=== PATIENT | female | born 1950 | race Caucasian/White ===

== ENCOUNTER → 2016-05-15 | Outpatient (CLI) | payer BC ==
--- NOTE | 2016-05-15 14:27 | DI ---
COMPLETE MYELOGRAM, 05/15/2016 9:08 AM: Clinical History: Left cervical radiculopathy. Thoracic back pain. Lumbar pain. Previous Exam: None at this facility. A "time out" session verified the patient's name and date of . Informed signed consent was then obtained for this procedure. The patient was informed of benefits and risks, to include but not be li mited to: allergies to medications (skin preparation agents, local anesthetic, and contrast agent), i nfection, and "spinal" headaches. The lower back was prepped with ChloraPrep with Tint. 1% lidocaine without epinephrine was used for intradermal and subcutaneous local anesthesia. With fluoroscopy, a 2 2 gauge spinal needle introduced into the spinal canal from the left L5 paraspinal approach. with a s leonora pass that revealed droplets of clear colorless CSF. 10 ml of Omipaque 300 was injected into the spinal canal with fluoroscopic monitoring. Spot films of the spine were obtained and the patient was transferred to the CT scan suite for the CT myelogram. Following the CT scan, the patient was observed in the department for approximately 1 hour. The nessa nt was then discharged home with a tank driver and was instructed to minimize activity for the rest of the day. The patient was also instructed to push fluids for the remainder of the day and to sleep on an extra pillow with the head up if possible. The patient was advised to watch for signs of an infection (including but not limited to: redness, swelling, fever) or an unusually severe headache. The fiorella t was instructed to either contact the x-ray department directly or to report to the Emergency Room i mmediately if problems arose. CERVICAL MYELOGRAM: The cervical cord is normal. No nerve root sleeve amputation is are present. Because of the patient's body habitus, only the C2-3 through C4-5 levels could be visualized on the crosstable lateral projec tion. Further evaluation will be performed with CT scanning. THORACIC MYELOGRAM: The thoracic cord is normal. No nerve root sleeve amputations are present. No extradural lesions are noted. LUMBAR MYELOGRAM: The lumbar canal has a normal appearance. No anterior extradural lesions are identified and there are no nerve root sleeve amputations. The conus medullaris is normal. Readin. Normal thoracic myelogram. The lumbar myelogram is also normal. 2. The AP and oblique projections of the cervical spine are normal. The crosstable lateral film show s normal disc spaces at C2-3 through C4-5 and the lower levels are obscured by the shoulders. This ar ea will be evaluated with a postcontrast CT scan.
--- NOTE | 2016-05-15 22:20 | DI ---
CT CERVICAL SPINE SCAN WITH INTRATHECAL CONTRAST, 05/15/2016 9:08 AM : Clinical History: Left cervical radiculopathy. Previous Exam: None at this facility. Scans are performed from the mid body of T3 to the base of the skull without IV contrast. Sagittal an d coronal reformatted images are generated. Curved coronal reformatted images and axial reformatted i mages angled through the disc spaces are also performed. The vertebral bodies are of normal height and size. The disc spaces are normal in height. No fracture s are identified. Posterior alignment and lateral masses are normal. C1 articulates normally with C2 and the occiput. Prevertebral soft tissue planes are normal. The cervical cord and cerebellar tonsils are normal. The C2-3 disc space is normal. C3-4 and C4-5 dis c spaces have central focal bulging but not herniated discs without canal or neural foraminal stenosi s. The disc spaces from C5-6 through T3-4 are normal. There is no intradural extramedullary lesion no jesus. READIN. There are midline small focal bulging discs at C3-4 and C4-5. There is no canal or neural foramin al stenosis at either level. 2. The C2-3 and the C5-6 through T3-4 disc spaces are normal. 3. The cervical cord is normal.
--- NOTE | 2016-05-15 22:39 | DI ---
CT THORACIC SPINE SCAN WITH INTRATHECAL CONTRAST, 05/15/2016 9:08 AM : Clinical History: Thoracic back pain. Previous Exam: None at this facility. Scans are obtained from the mid body of C6 to to the mid body of L1 without IV contrast. Sagittal and coronal reformatted images are generated. Curved coronal reformatted images and axial reformatted im ages angled through the disc spaces are also performed. There is osteoporosis and there are is wedging anteriorly of the bodies of T7 through T9 consistent w ith chronic osteoporotic mild compression fractures. The remaining vertebral bodies are of normal hei ght. Mild disc space narrowing is present at T8-9 in the remaining thoracic disc spaces are of normal height. Posterior alignment and posterior elements are normal. Pedicles are normal. Paravertebral so ft tissue planes are normal. Osteophytic spurring is present laterally on the left side between T5-6 and T6-7, and bilaterally from T7-8 through T10-11. Calcified granulomata are present in the right up per lobe and in the superior segment of the right lower lobe. The lesion in the right lower lobe concepción ures 18 mm in diameter and has a central calcification that measures 6 mm in diameter. Punctate calci fications are present in the spleen and together with the calcified granulomata in the lungs, this pa tient most likely has had prior exposure to TB or histoplasmosis. There is a bulging but not herniated disc without canal or neural foraminal stenosis at T8-9. The dis c spaces from C6-7 through T7-8, and from T9-10 through T12-L1 are normal. There is no intradural ext ramedullary lesion or intramedullary lesion present. Readin. Mild osteoporotic compression fractures between T7 and T9 with mild disc space narrowing and a bu lging but not herniated disc at T8-9. There is no canal or neural foraminal stenosis at this level. 2. The disc spaces from C6-7 through T7-8 and from T9-10 through T12-L1 are normal. The thoracic cor d is also normal. 3. 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
--- NOTE | 2016-05-15 22:48 | DI ---
CT LUMBAR SPINE SCAN WITH INTRATHECAL CONTRAST, 05/15/2016 9:08 AM : Clinical History: Lumbar pain. Previous Exam: None at this facility. Scans are obtained from T12 to S4 with intrathecal contrast. Sagittal and coronal reformatted images are generated. Curved coronal reformatted images and axial reformatted images angled through the dis c spaces are also performed. Coronal The vertebral bodies are of normal height and size. There is moderate L1-2 and L2-3 and L5-S1 disc sp tiffany narrowing. The remaining disc spaces are of normal height. The pedicles and posterior alignment a re normal. Severe degenerative arthritic change is present in the apophyseal joints bilaterally at L4 -5 and L5-S1. The sacrum and SI joints are normal. The cord terminates at T12 and the conus medullaris is normal. The disc spaces from T12-L1 through L3 -4 are normal. L4-5 has a circumferentially bulging but not herniated disc without canal or neural fo raminal stenosis. L5-S1 also has a mild circumferentially bulging but not herniated disc without stefan l or neural foraminal stenosis. Readin. There are bulging but not herniated discs without canal or neural foraminal stenosis at L4-5 and L5-S1. Severe degenerative arthritic changes are noted bilaterally in the L4-5 and L5-S1 apophyseal j oints. 2. The disc spaces from T12-L1 through L3-4 are normal.
== END ==
LOC: RAD 08:59
PROVIDERS: ATTEND Neurological Surgery
DX: M54.12 Radiculopathy, cervical region (principal); M54.6 Pain in thoracic spine; M54.5 Low back pain; M48.07 Spinal stenosis, lumbosacral region; M48.54XA Collapsed vertebra, not elsewhere classified, thoracic region, initial encounter for fracture
CPT/HCPCS: 72126; 72129; 72132; 72240; 72255; 72265

== ENCOUNTER → 2016-05-22 | Outpatient (CLI) | payer BC ==
--- NOTE | 2016-05-22 16:09 | DI ---
CERVICAL SPINE SERIES, 05/22/2016 9:13 AM: Clinical History: Cervical pain. Previous Exam: None at this facility. Upright AP and lateral and upright lateral flexion and extension views are submitted. The vertebral b odies are normal in height and size. Mild disc space narrowing is present at C4-5. Posterior alignmen t and lateral masses are normal. No instability is noted with flexion and extension maneuvers. C1 art iculates normally with C2 and the occiput. Prevertebral soft tissue planes are normal. Readin. Mild C4-5 disc space narrowing. 2. There is no instability noted with flexion and extension maneuvers.
--- NOTE | 2016-05-22 16:55 | DI ---
LUMBAR SPINE SERIES, 05/22/2016 9:13 AM: Clinical History: Lumbar pain. Previous Exam: None at this facility. Upright AP and lateral and upright lateral flexion and extension views are submitted. When the flexio n and extension and neutral standing views are reviewed, the patient is actually moving more at the l evel of the hip joints rather than through the lumbar spine itself. The vertebral bodies are of cyndi l height and size. Mild to moderate narrowing is present at L3-4 and L4-5 with moderately severe narr owing at L5-S1. Degenerative arthritic changes are present most severely in the apophyseal joints hollie aterally at L4-5 and L5-S1. There is a grade 1 spondylolisthesis at L4-5 and no instability is noted with flexion and extension. The pedicles are normal. Both SI joints are normal. Readin. There is disc space narrowing from L3-4 through L5-S1 with a grade 1 spondylolisthesis at L4-5. A rthritic changes are present in the apophyseal joints bilaterally between L4-5 and L5-S1. 2. No instability is noted with flexion and extension, but it appears that very little bending occur red at the level of the lumbar spine and the majority of movement was produced at the level of the hi ps.
== END ==
LOC: RAD 09:08
PROVIDERS: ATTEND Neurological Surgery
DX: M54.2 Cervicalgia (principal); M54.5 Low back pain; M48.06 Spinal stenosis, lumbar region; M43.16 Spondylolisthesis, lumbar region; M48.02 Spinal stenosis, cervical region
CPT/HCPCS: 72050; 72110

== ENCOUNTER → 2016-06-06 | Outpatient (CLI) | payer BC ==
--- NOTE | 2016-06-06 13:56 | DI ---
CT BONE DENSITOMETRY OF THE SPINE AND HIP, 06/06/2016 12:59 PM : Clinical History: Age related osteoporosis. Previous Exam: None at this facility. 3D Quantitative CT (QCT) Bone Mineral Densitometry: The [place] scans are normal. Low dose scans are obtained of the lumbar spine and sampling is obtaine d through the midbodies of L1 and L2. The average volumetric bone mineral density (BMD) of the lumbar spine is 123.1 mg/cm3. This value corresponds to a volumetric T-score of -1.7 and Z-score of 0.99 as assessed by this BMD software. Volumetric 3D QCT and areal DEXA T-scores and Z-scores are not direct ly equivalent. Using the [employer]'s (ACR) volumetric QCT trabecular spine BMD co nversion table that is closely equivalent to the areal WHO diagnostic categories, this patient falls into the category of normal bone mineral density. CT X-Ray Absorptiometry (CTXA) Hip Bone Mineral Densitometry: Low dose scans are obtained through the hips for assessment of bone mineral density (BMD) and T-score s and Z-scores of the left hip. Total hip BMD: 0.595 mg/cm2 T-score: -2.8 Z-score: Femoral neck BMD: 0.574 mg/cm2 T-score: -1.99 Z-score: Note: T-scores of the spine and hip exhibit discordant readings approximately 40% of the time in eval uated patients. Changes in BMD determined either by volumetric QCT or areal DEXA are more reliable in assessment of change in a patient's BMD status rather than changes in T-scores. The CTXA hip CT bone mineral density measurements and the resultant T-scores and Z-scores are exact hip DEXA scan equival ents. The femoral neck T-score can be used in the WHO's FRAX program for assessing an untreated patie nt's 10 year fracture risk. READING: Normal bone mineral density of the lumbar spine. Some of this may be due to sclerotic degenerative ch anges causing slightly erroneously high readings. Osteoporosis of the left total hip.
== END ==
LOC: CT 12:51
PROVIDERS: ATTEND Neurological Surgery
DX: M81.0 Age-related osteoporosis without current pathological fracture (principal)
CPT/HCPCS: 77078